=== PATIENT | male | born 1945 | race Caucasian/White ===

== ENCOUNTER 2020-04-22 12:38 | Outpatient (CLI) | payer MEDICARE, SELFPAY ==
--- NOTE | ~2020-04-22 | MR_ITS ---
EXAMINATION: MR shoulder LT wo con DATE: 04/22/2020 14:07 INDICATION: Left shoulder pain. TECHNIQUE: Magnetic resonance imaging (MRI) of the left shoulder was performed without intravenous co ntrast. Sequences included axial PD-weighted FS FSE, coronal oblique PD-weighted FS FSE and T2-weight ed FS FSE, and sagittal oblique T2-weighted FS FSE and T1-weighted FSE. COMPARISON: Left shoulder radiographs 01/02/2020 FINDINGS: Coracoacromial arch: The acromion undersurface is curved in morphology (type II). 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 There is moderate subacromial/subdeltoid bursitis that communicates with the glenohumer al joint and acromioclavicular joint. Rotator cuff: There are complete tears of the supraspinatus and infraspinatus tendons measuring 5 cm anterior to po sterior by greater than 5 cm proximal to distal. Teres minor tendon is normal. There is severe tendin opathy of subscapularis tendon with articular sided partial-thickness tear. There is mild fatty atrop hy of supraspinatus and infraspinatus muscle bellies. There is increased T2-weighted signal intensity in the infraspinatus and supraspinatus muscle bellies, consistent with subacute denervation. Biceps tendon and glenoid labrum: There is a complete tear of proximal biceps tendon. There is a tear of the superior glenoid labrum. Fluid: There is a large glenohumeral joint effusion. Bones/cartilage: There is cartilage surface irregularity of glenoid and humeral head. IMPRESSION: 1. Massive full-thickness rotator cuff tear. 2. Mild glenohumeral joint chondrosis. 3. Large glenohumeral joint effusion that communicates with the subacromial/subdeltoid bursa and acro mioclavicular joint. 4. Complete tear of proximal biceps tendon. Reviewed, dictated and finalized at location A. [employer] IMPRESSION: 1. Massive full-thickness rotator cuff tear. 2. Mild glenohumeral joint chondrosis. 3. Large glenohumeral joint effusion that communicates with the subacromial/sub deltoid bursa and acromioclavicular joint. 4. Complete tear of proximal biceps tendon.
== END 2020-04-22 12:39 | disposition home or self-care (01) ==
PROVIDERS: Visit Provider Orthopaedic Surgery
DX: M25.512 Pain in left shoulder (principal); M75.122 Complete rotator cuff tear or rupture of left shoulder, not specified as traumatic; M94.8X2 Other specified disorders of cartilage, upper arm; M25.412 Effusion, left shoulder; S46.212A Strain of muscle, fascia and tendon of other parts of biceps, left arm, initial encounter
CPT/HCPCS: 73221